=== PATIENT | female | born 1980 | race Caucasian/White ===

== ENCOUNTER → 2017-02-05 | Outpatient (CLI) | payer OTHER ==
[2017-02-05 14:48] LABS: BASO % 0.2 %; BASO ABS # 0.01 K/uL (0-0.2); COMPLETE YES; EOS % 2.8 %; HEMATOCRIT 31.8 % (37-47); IG% 0.4 %; LYMPH % 26.2 %; LYMPH ABS # 1.31 K/uL (1.2-3.4); MEAN CELL VOLUME 86.9 fL (80-100); MEAN CORPUSCULAR HGB CONC 31.1 g/dl (32-36); MONO % 7.4 %; PLATELET COUNT 324 K/uL (130-400); RED BLOOD COUNT 3.66 M/uL (4.2-5.4)
[2017-02-05 15:04] LABS: ALT/SGPT 20 U/L (12-78); AMYLASE 26 U/L (25-115); AST/SGOT 14 U/L (15-37); BLOOD UREA NITROGEN 8 mg/dl (7-18); CALCIUM 8.3 mg/dl (8.5-10.1); CARBON DIOXIDE 27 mmol/L (21-32); CHLORIDE 106 mmol/L (98-107); CREATININE 0.66 mg/dl (0.60-1.20); GLUCOSE 84 mg/dl (70-99); POTASSIUM 4.1 mmol/L (3.5-5.1); SODIUM 140 mmol/L (136-145)
[2017-02-05 15:07] LABS: ALB/GLOB RATIO 0.8 (0.9-2); ALKALINE PHOSPHATASE 77 U/L (45-117)
== END | disposition home or self-care (01) ==
LOC: C.LABSPEC 14:01
PROVIDERS: ATTEND Family Medicine
DX: K21.9 Gastro-esophageal reflux disease without esophagitis (principal)

== ENCOUNTER → 2017-06-17 | Outpatient (CLI) | payer OTHER ==
[2017-06-17 18:22] LABS: BASO % 0.2 %; BASO ABS # 0.01 K/uL (0-0.2); COMPLETE YES; EOS % 1.8 %; HEMATOCRIT 30.3 % (37-47); IG% 0.5 %; LYMPH % 22.5 %; LYMPH ABS # 1.34 K/uL (1.2-3.4); MEAN CELL VOLUME 85.8 fL (80-100); MEAN CORPUSCULAR HEMOGLOBIN 26.9 pg (25-34); MEAN CORPUSCULAR HGB CONC 31.4 g/dl (32-36); MEAN PLATELET VOLUME 9.1 fL (7.4-10.4); MONO % 7.9 %; NEUT % 67.1 %; PLATELET COUNT 297 K/uL (130-400); RED BLOOD COUNT 3.53 M/uL (4.2-5.4); WHITE BLOOD COUNT 5.96 K/uL (4.8-10.8)
[2017-06-17 18:30] LABS: ALT/SGPT 14 U/L (12-78); BLOOD UREA NITROGEN 6 mg/dl (7-18); BUN/CREATININE RATIO 8.4 (10-20); CALCIUM 8.6 mg/dl (8.5-10.1); CARBON DIOXIDE 24 mmol/L (21-32); CHLORIDE 104 mmol/L (98-107); CREATININE 0.74 mg/dl (0.60-1.20); GLUCOSE 91 mg/dl (70-99); POTASSIUM 3.9 mmol/L (3.5-5.1); SODIUM 137 mmol/L (136-145)
[2017-06-17 18:33] LABS: ALB/GLOB RATIO 0.7 (0.9-2); ALKALINE PHOSPHATASE 73 U/L (45-117); AST/SGOT 10 U/L (15-37)
--- NOTE | 2017-06-23 09:48 | CODING QUERY MEDICAL NECESSITY ---
SUPPORTING DIAGNOSIS NEEDED Dr. Allison, A supporting diagnosis is required for the test/procedure performed on this patient in order for us to be reimbursed by the patient's insurance. Please provide a supporting diagnosis for the following test/procedure listed below next to the test name along with your signature. *If there is no additional diagnosis for this patient that would support the following test/procedure please document that below next to the test/procedure. Test(s)/Procedure(s) that require a supporting diagnosis: * [id number] GLYCATED HEMOGLOBIN DIAGNOSIS: DATE OF SERVICE: 06/17/17 Provider Signature: Date: Thank you Jesse Dawson Health Information Management Once completed, please kindly fax back to [phone] For questions please call [phone]
== END ==
LOC: C.LABSPEC 17:55
PROVIDERS: ATTEND Family Medicine
DX: R35.0 Frequency of micturition (principal)

== ENCOUNTER → 2017-06-24 | Outpatient (CLI) | payer OTHER ==
[2017-06-24 18:50] LABS: TOTAL IRON BINDING CAPACITY 370 mcg/dl (250-450)
[2017-06-24 19:02] LABS: HEMATOCRIT 29.8 % (37-47); MEAN CELL VOLUME 86.1 fL (80-100); MEAN CORPUSCULAR HEMOGLOBIN 27.5 pg (25-34); MEAN CORPUSCULAR HGB CONC 31.9 g/dl (32-36); PLATELET COUNT 316 K/uL (130-400); RED BLOOD COUNT 3.46 M/uL (4.2-5.4); WHITE BLOOD COUNT 6.62 K/uL (4.8-10.8)
[2017-06-24 20:25] LABS: ANISOCYTOSIS PRESENT; EOSINOPHIL % 2.6 %; LYMPHOCYTE % 27.2 %; MDIFF REQUEST Y; META ABS # 0.06 K/uL (0-0); METAMYELOCYTE % 0.9 %; NEUTROPHILS % 68.4 %
== END | disposition home or self-care (01) ==
LOC: C.LABSPEC 18:08
PROVIDERS: ATTEND Family Medicine
DX: D64.9 Anemia, unspecified (principal)

== ENCOUNTER → 2017-12-16 | Outpatient (CLI) | payer OTHER ==
[2017-12-16 14:28] LABS: BASO % 0.2 %; BASO ABS # 0.01 K/uL (0-0.2); EOS % 2.1 %; HEMATOCRIT 30.3 % (37-47); HEMOGLOBIN 9.9 g/dL (12.0-16.0); IG# 0.02 K/uL (0.00-0.02); LYMPH % 27.8 %; MEAN CELL VOLUME 89.4 fL (80-100); MEAN CORPUSCULAR HEMOGLOBIN 29.2 pg (25-34); MEAN CORPUSCULAR HGB CONC 32.7 g/dl (32-36); MEAN PLATELET VOLUME 9.1 fL (7.4-10.4); MONO % 6.9 %; MONO ABS # 0.32 K/uL (0.11-0.59); NEUT % 62.6 %; NEUT ABS # 2.92 K/uL (1.4-6.5); PLATELET COUNT 274 K/uL (130-400); RED CELL DISTRIBUTION WIDTH CV 14.8 % (11.5-14.5); RED CELL DISTRIBUTION WIDTH SD 48.5 fL (36.4-46.3); WHITE BLOOD COUNT 4.67 K/uL (4.8-10.8)
[2017-12-16 14:48] LABS: ALBUMIN 3.4 gm/dl (3.4-5.0); ALT/SGPT 18 U/L (12-78); BLOOD UREA NITROGEN 8 mg/dl (7-18); CALCIUM 8.5 mg/dl (8.5-10.1); CARBON DIOXIDE 27 mmol/L (21-32); CREATININE 0.66 mg/dl (0.60-1.20); GLUCOSE 88 mg/dl (70-99); POTASSIUM 3.6 mmol/L (3.5-5.1); SODIUM 136 mmol/L (136-145)
[2017-12-16 14:58] LABS: ALKALINE PHOSPHATASE 69 U/L (45-117); AST/SGOT 13 U/L (15-37); TOTAL PROTEIN 7.8 gm/dl (6.4-8.2)
== END | disposition home or self-care (01) ==
LOC: C.LABSPEC 13:00
PROVIDERS: ATTEND Family Medicine
DX: R53.83 Other fatigue (principal)

== ENCOUNTER 2020-05-09 20:05 | Observation (INO) ==
[2020-05-09] MEDS ORDERED: SODIUM CHLORIDE 0.9% 1000ML 1,000 ML IV SCH (21:00)
[2020-05-09] MEDS ORDERED: SODIUM CHLORIDE 0.9% 250 ML IV PRN ×2 (21:01→21:55)
[2020-05-09] MEDS ORDERED: ONDANSETRON INJ 2 MG/ML 2 ML VIAL IV STA (21:02)
[2020-05-09] MEDS ORDERED: fentaNYL citrate 100 MCG/2 ML VIAL IV STA (21:02)
[2020-05-09 21:23] LABS: Hematocrit (blood only) 22.3 % (37-47); Hemoglobin 6.6 g/dL (12.0-16.0); Mean Corpuscular Hemoglobin 25.8 pg (25-34); Mean Corpuscular Hgb Conc 29.6 g/dL (32-36); Mean Corpuscular Volume 87.1 fL (80-100); Mean Platelet Volume 8.6 fL (7.4-10.4); Platelet Count 334 K/uL (130-400); RDW Coefficient of Variation 19.4 % (11.5-14.5); RDW Standard Deviation 62.1 fL (36.4-46.3); Red Blood Count 2.56 M/uL (4.2-5.4)
[2020-05-09 21:34] LABS: Partial Thromboplastin Ratio 0.9; Partial Thromboplastin Time 25.1 Seconds (21.0-31.0); Prothrombin Time 10.8 Seconds (9.0-12.0)
[2020-05-09 21:39] LABS: Albumin Level 3.4 gm/dl (3.4-5.0); BUN Creatinine Ratio 8.8 (10-20); Basophils # (auto) 0.01 K/uL (0-0.2); Basophils % (auto) 0.2 %; Calcium 8.3 mg/dl (8.5-10.1); Creatinine Clr Calc Pharmacy 111.5 ml/min; Eosinophils # (auto) 0.05 K/uL (0-0.5); Est GFR (African American) 107.6; Est GFR (Non-African American) 92.9; Hypochromasia Present; Immature Granulocytes # (auto) 0.01 K/uL (0.00-0.02); Immature Granulocytes % (auto) 0.2 %; Lymphocytes # (auto) 1.12 K/uL (1.2-3.4); Lymphocytes % (auto) 21.5 %; Monocytes # (auto) 0.41 K/uL (0.11-0.59); Monocytes % (auto) 7.9 %; Neutrophils % (auto) 69.2 %; Ovalocytes 1+; Potassium 3.4 mmol/L (3.5-5.1)
--- NOTE | 2020-05-09 21:39 | History & Physical Report ---
Date of Service May 09, 2020 Assessment & Plan (1) Vaginal bleeding: I have already discussed consent with patient in the office, as we have planned for this surgery for Friday. However, due to her increase in bleeding, will need to proceed to OR tonight. Due to severe anemia (hgb down to 6.6 tonight), will receive 2u PRBC. Consent form re-signed (office consent that was previously signed is not available). Questions answered, patient is agreeable to proceed to OR. Will plan for hysteroscopy, dilation and curettage, +/- polypectomy. History of Present Illness Chief Complaint: vaginal bleeding Primary Care Provider: Dante Allison 39 yo who presented to the ER tonight with significant increase in vaginal bleeding. She is scheduled for hysteroscopy, D&C, +/- Polypectomy on Friday for her heavy vaginal bleeding. Last food intake: 4:30pm. FROM PRIOR OFFICE NOTE: 39yo here as a new patient, for ER followup. She had presented to [facility] ER with severe heavy menses, and rec'd PRBC transfusion 2 units. Periods had been heavy, but not this severe in the past. Over the past 3-4 months the periods have gotten much worse. She is passing clots, soaking a pad every 30 miinutes. At this time, has slowed down. This period started 03/20/20 and is finally starting to slow down. Pap at least a year ago. No history of abnormal paps. 3 vaginal deliveries. Heavy bleeding with first delivery, did not receive transfusion. Currently sexually active. H/o tubal ligation, has not been on control for a long time. Reviewed ultrasound report today - endo thickness is 22mm. Recommend endometrial sampling. Due to the large thickness of endo, recommend D&C over endometrial biopsy. Pap smear negative. Allergies Allergy/AdvReac Type Severity Reaction Status Date / Time aspirin Allergy Mild Hives Verified 05/09/20 22:07 Home Medications Home Medications Medication Instructions Recorded Confirmed Type ferrous sulfate 325 mg PO QAM 04/11/20 05/09/20 History ibuprofen 400 - 600 mg PO Q6H PRN 04/11/20 05/09/20 History multivitamin 1 tab PO QAM 04/11/20 05/09/20 History pantoprazole 40 mg PO QAM 04/11/20 05/09/20 History norethindrone acetate 5 mg tablet 5 mg PO TID 10 Days #30 tab 05/08/20 05/09/20 Rx acetaminophen [Tylenol Extra 1,000 mg PO Q6H PRN 05/09/20 05/09/20 History Strength] Patient History Medical History Anemia Arthritis Chronic back pain GERD (gastroesophageal reflux disease) Well controlled and stable Surgical History H/O tubal ligation H/O wisdom tooth extraction History of colonoscopy X 2 History of esophagogastroduodenoscopy (EGD) Family History Mother Ovarian cancer Cancer Cervical, ovarian Father Diabetes Other Heart disease Hypertension Osteoporosis Social History Smoking Status: Never smoker Second Hand Exposure: Yes (MOTHER SMOKED); Hx Alcohol Use: Yes Alcohol type: beer Hx Substance Use: No Preferred Language: Palauan Communication Ability: Effective Flexographic Press Helper Required: No Beliefs That Will Affect Care: None Current Living Situation: Family and Significant Other Feels Safe at Home: Yes Review of Systems All systems reviewed & are unremarkable except as noted in HPI & below Physical Exam Physical Exam: Constitutional: alert, in no acute distress, well nourished, well developed and healthy appearing. Skin: normal skin color and pigmentation, normal skin turgor and no rash. Neck: the appearance of the neck was normal, no neck mass was observed, the thyroid was not enlarged and there were no palpable thyroid nodules. Pulmonary: no respiratory distress, normal respiratory rhythm and effort and clear bilateral breath sounds. Cardiovascular: heart rate and rhythm were normal, normal S1 and S2 and no murmurs present. Abdomen: soft, non-tender, no abdominal mass palpated and no hepato- splenomegaly. No hernias were discovered. : please see prior notes, will perform exam under anesthesia in OR Neurological: The patient was oriented to person, place, and time. Mood and affect were appropriate. Extremities: No edema, no calf tenderness. Results & Data ([facility]) Vital Signs (Past 12 Hours) Vital Signs Temp Pulse Resp Pulse Ox 05/09/20 20:08 37.1 C 99 H 18 100 Coding Level of Care Code None Diagnoses Vaginal bleeding N93.9
[2020-05-09 21:42] LABS: Albumin Globulin Ratio 0.7 (0.9-2); Bilirubin,Total 0.2 mg/dl (0.2-1); Globulin 4.6 gm/dl (2.5-4.0)
[2020-05-09 21:53] LABS: Appearance Urine Clear (Clear); Bilirubin Urine Negative (Negative); Blood Urine 3+ (Negative); Color Urine Yellow; Glucose Urine UA Negative (Negative); Ketones Urine Negative (Negative); Leukocyte Esterase Urine Negative (Negative); Nitrite Urine Negative (Negative); Protein Urine 1+ (Negative); Urobilinogen Urine Negative (Negative)
[2020-05-09 21:56] LABS: RBC Urine >30 /hpf (0-4)
[2020-05-09 21:58] LABS: Bacteria Urine 1+ (Negative)
[2020-05-10] MEDS ORDERED: fentaNYL citrate 100 MCG/2 ML VIAL IV PRN (00:04)
[2020-05-10] MEDS ORDERED: ATROPINE SULFATE 0.1 MG/ML 10ML SYR IV PRN (00:04)
[2020-05-10] MEDS ORDERED: ePHEDrine sulfate 50 MG/ML AMP IV PRN (00:04)
[2020-05-10] MEDS ORDERED: ONDANSETRON INJ 2 MG/ML 2 ML VIAL IV PRN ×2 (00:04→03:32)
--- NOTE | 2020-05-10 00:07 | Anesthesiology Consultation ---
Date of Service May 10, 2020 Assessment & Plan (1) Encounter for pre-operative examination: Chart Review Chart Review: Acceptable Risk for Surgery and Patient NOT seen in Pre Admission Testing Consults Requested none ASA [id number] Proposed Anesthesia Anesthesia Type: General Risk / Benefits Reviewed With: PT / POA / Parent / Guardian, Accepts Plan and Informed Consent Obtained History Surgery Operation Date: 05/09/20 23:00 Proposed Procedures p Dilatation And Curettage, Hysteroscopy - Alcira Cordero, Height/Weight Height: 5 ft 2 in Weight: 111.8 kg Allergies Allergy/AdvReac Type Severity Reaction Status Date / Time aspirin Allergy Mild Hives Verified 05/09/20 22:07 Medications Home Medications Medication Instructions Recorded Confirmed Last Taken ferrous sulfate 325 mg PO QAM 04/11/20 05/09/20 Unknown ibuprofen 400 - 600 mg PO Q6H PRN 04/11/20 05/09/20 Unknown multivitamin 1 tab PO QAM 04/11/20 05/09/20 Unknown pantoprazole 40 mg PO QAM 04/11/20 05/09/20 Unknown norethindrone acetate 5 mg tablet 5 mg PO TID 10 Days #30 tab 05/08/20 05/09/20 Unknown acetaminophen [Tylenol Extra 1,000 mg PO Q6H PRN 05/09/20 05/09/20 Unknown Strength] Active Medications Generic Name Dose Route Start Last Admin Trade Name Freq PRN Reason Stop Dose Admin Sodium Chloride 1,000 mls @ 125 mls/hr 05/09/20 21:00 05/09/20 21:31 Nss 1000ml IV 05/10/20 04:59 125 mls/hr .Q8H MILLI Administration NPO Date Last Intake of Fluids: 05/09/20 Time Last Intake of Fluids: 16:30 Date Last Intake of Solids: 05/09/20 Time Last Intake of Solids: 16:30 Past Medical History Medical History Anemia Arthritis Chronic back pain GERD (gastroesophageal reflux disease) Well controlled and stable Exercise / Class Metabolic Activity II 4-5 Yardwork/Stairs/Walk up hill (mild acute SOB in last 24 hours) Past Family History Family History Mother Ovarian cancer Cancer Cervical, ovarian Father Diabetes Other Heart disease Hypertension Osteoporosis Past Surgical History Surgical History H/O tubal ligation H/O wisdom tooth extraction History of colonoscopy X 2 History of esophagogastroduodenoscopy (EGD) Past Anesthesia History No Hx of Anesthesia Complications and No Family Hx of Anesthesia Complications History of PONV No Hx of PONV and No Hx of Motion Sickness Social History Smoking Status: Never smoker Hx Alcohol Use: Yes Alcohol type: beer alcohol intake frequency: holidays/special occasions only Hx Substance Use: No Physical Exam Vital Signs Last Vital Signs Temp 37.1 C 05/09/20 20:08 Pulse 75 05/09/20 23:32 Resp 18 05/09/20 23:32 BP 145/82 H 05/09/20 23:32 Pulse Ox 100 05/09/20 23:32 Constitutional + obese ENMT Mouth: no dentition abnormality Thyromental Distance: > or= 3.5 Finger Breadths Mallampati Class: II Neck normal visual inspection Respiratory normal respiratory effort Auscultation: lungs clear to auscultation bilaterally Cardiovascular Rate/Rhythm: regular rate and regular rhythm Psychiatric Orientation: alert Testing Laboratory Results 05/09/20 21:09 05/09/20 21:09 PT 10.8 Seconds (9.0-12.0) 05/09/20 21:09 INR 1.0 (0.9-1.1) 05/09/20 21:09 APTT 25.1 Seconds (21.0-31.0) 05/09/20 21:09 Urine Color Yellow 05/09/20 21:37 Urine Appearance Clear (Clear) 05/09/20 21:37 Urine pH 6.0 (4.5-7.5) 05/09/20 21:37 Ur Specific [place] 1.020 (1.000-1.030) 05/09/20 21:37 Urine Protein 1+ (Negative) H 05/09/20 21:37 Urine Glucose (UA) Negative (Negative) 05/09/20 21:37 Urine Ketones Negative (Negative) 05/09/20 21:37 Urine Nitrite Negative (Negative) 05/09/20 21:37 Ur Leukocyte Esterase Negative (Negative) 05/09/20 21:37 Urine RBC >30 /hpf (0-4) H 05/09/20 21:37 Urine WBC 10-30 /hpf (0-5) H 05/09/20 21:37 Ur Epithelial Cells 5-10 /lpf (0-5) H 05/09/20 21:37 Blood Type O Positive 05/09/20 21:15 Antibody Screen NEGATIVE 05/09/20 21:15 05/09/20 21:40 POC Ur Test NEG
[2020-05-10] MEDS ORDERED: fentaNYL citrate 100 MCG/2 ML VIAL ONE (00:29)
--- NOTE | 2020-05-10 01:01 | Emergency Department Note ---
History of Present Illness General Chief complaint: Vaginal Bleeding Stated complaint: BLEEDING AND PAIN Time Seen by Provider: 05/09/20 20:46 Source: patient and RN notes reviewed Mode of arrival: ambulatory Limitations: no limitations History of Present Illness Provider complaint: Vaginal bleeding Maximum Pain Intensity: 8 This patient is a 39-year-old female who presents emergency department with complaints of heavy vaginal bleeding. The patient states she is scheduled to have surgery with Dr. Cordero secondary to a polyp and a thickened endometrium. Patient is currently taking Aygestin but states she is changing her pad twice every hour. Last month the patient was [facility] at [facility] and transfused 2 units of PRBCs. Patient states she has having some lower abdominal cramping and does feel somewhat lightheaded at times. She denies any chest pain or shortness of breath. She did speak with Dr. Cordero prior to coming to the emergency department. Home Medications Home Medications Medication Instructions Recorded Confirmed Type ferrous sulfate 325 mg PO QAM 04/11/20 05/09/20 History ibuprofen 400 - 600 mg PO Q6H PRN 04/11/20 05/09/20 History multivitamin 1 tab PO QAM 04/11/20 05/09/20 History pantoprazole 40 mg PO QAM 04/11/20 05/09/20 History norethindrone acetate 5 mg tablet 5 mg PO TID 10 Days #30 tab 05/08/20 05/09/20 Rx acetaminophen [Tylenol Extra 1,000 mg PO Q6H PRN 05/09/20 05/09/20 History Strength] Allergies Allergy/AdvReac Type Severity Reaction Status Date / Time aspirin Allergy Mild Hives Verified 05/09/20 22:07 Past Med/Surg History Medical History Anemia Arthritis Chronic back pain GERD (gastroesophageal reflux disease) Well controlled and stable Surgical History H/O tubal ligation H/O wisdom tooth extraction History of colonoscopy X 2 History of esophagogastroduodenoscopy (EGD) Family History Mother Ovarian cancer Cancer Cervical, ovarian Father Diabetes Other Heart disease Hypertension Osteoporosis Social History Smoking Status: Never smoker Second Hand Exposure: Yes (MOTHER SMOKED); Hx Alcohol Use: Yes Alcohol type: beer Hx Substance Use: No Preferred Language: Swedish Communication Ability: Effective Network Programmer Required: No Beliefs That Will Affect Care: None Current Living Situation: Family and Significant Other Feels Safe at Home: Yes Review of Systems See HPI for pertinent positives & negatives. and A total of 10 systems reviewed and were otherwise negative Physical Exam Vital Signs Vital Signs - 24 hr 05/09/20 20:08 05/09/20 21:35 05/09/20 21:36 Temperature 37.1 C Temperature Source Oral Pulse Rate 99 H 86 Pulse Rate [Apical] 84 Pulse Rate from SpO2 Sensor 87 Respiratory Rate 18 18 15 Respiratory Depth Normal Blood Pressure 132/84 Blood Pressure [Left Arm] 132/84 Blood Pressure Mean 94 Blood Pressure Mean [Left Arm] 100 Pulse Oximetry 100 98 99 Oxygen Delivery Method Room Air Room Air Sepsis Recent Fever Within 48 Hours No Sepsis New/Unexplained Change in Mental Status N/A Sepsis Action Taken by Nursing No Action Required 05/09/20 21:39 05/09/20 21:40 05/09/20 21:50 Temperature Temperature Source Pulse Rate 84 88 99 H Pulse Rate [Apical] Pulse Rate from SpO2 Sensor 84 87 96 H Respiratory Rate 14 12 12 Respiratory Depth Blood Pressure Blood Pressure [Left Arm] Blood Pressure Mean Blood Pressure Mean [Left Arm] Pulse Oximetry 99 98 98 Oxygen Delivery Method Sepsis Recent Fever Within 48 Hours Sepsis New/Unexplained Change in Mental Status Sepsis Action Taken by Nursing 05/09/20 22:00 05/09/20 22:10 05/09/20 22:20 Temperature Temperature Source Pulse Rate 86 83 84 Pulse Rate [Apical] Pulse Rate from SpO2 Sensor 86 82 Respiratory Rate 15 17 13 Respiratory Depth Blood Pressure Blood Pressure [Left Arm] Blood Pressure Mean Blood Pressure Mean [Left Arm] Pulse Oximetry 97 99 Oxygen Delivery Method Sepsis Recent Fever Within 48 Hours Sepsis New/Unexplained Change in Mental Status Sepsis Action Taken by Nursing 05/09/20 22:30 05/09/20 22:40 05/09/20 22:50 Temperature Temperature Source Pulse Rate 80 81 81 Pulse Rate [Apical] Pulse Rate from SpO2 Sensor Respiratory Rate 15 15 12 Respiratory Depth Blood Pressure Blood Pressure [Left Arm] Blood Pressure Mean Blood Pressure Mean [Left Arm] Pulse Oximetry Oxygen Delivery Method Sepsis Recent Fever Within 48 Hours Sepsis New/Unexplained Change in Mental Status Sepsis Action Taken by Nursing 05/09/20 22:51 05/09/20 23:00 05/09/20 23:10 Temperature Temperature Source Pulse Rate 84 83 89 Pulse Rate [Apical] Pulse Rate from SpO2 Sensor Respiratory Rate 18 17 Respiratory Depth Blood Pressure 130/80 Blood Pressure [Left Arm] Blood Pressure Mean 84 Blood Pressure Mean [Left Arm] Pulse Oximetry 98 Oxygen Delivery Method Sepsis Recent Fever Within 48 Hours Sepsis New/Unexplained Change in Mental Status Sepsis Action Taken by Nursing 05/09/20 23:19 05/09/20 23:20 05/09/20 23:32 Temperature Temperature Source Pulse Rate 85 85 75 Pulse Rate [Apical] Pulse Rate from SpO2 Sensor Respiratory Rate 19 18 Respiratory Depth Blood Pressure 137/79 145/82 H Blood Pressure [Left Arm] Blood Pressure Mean 95 Blood Pressure Mean [Left Arm] Pulse Oximetry 98 100 Oxygen Delivery Method Room Air Sepsis Recent Fever Within 48 Hours Sepsis New/Unexplained Change in Mental Status Sepsis Action Taken by Nursing Vital signs reviewed. General: Well-appearing 39 yo female, in no significant distress. HEENT: No scleral icterus, PERRLA, neck supple. Pale conjunctiva. Cardiovascular: Regular rate and rhythm, no extra sounds. Pulmonary: Clear to auscultation bilaterally, normal work of breathing. Abdomen: Soft, nontender, nondistended, positive bowel sounds. Musculoskeletal: Atraumatic, no peripheral edema. Neurologic: Patient awake alert and oriented x 3 : Normal external female genitals. Moderate amount of blood on external examination. Skin: Warm, dry, no rash Course Administered Medications Sodium Chloride (Nss 1000ml) 1,000 mls @ 125 mls/hr IV .Q8H MILLI Stop: 05/10/20 04:59 Last Admin: 05/09/20 21:31 Dose: 125 mls/hr Documented by: [id number] Discontinued Medications Fentanyl Citrate (Fentanyl Citrate 100 Mcg/2 Ml Vial) 50 mcg IV NOW STA Stop: 05/09/20 21:03 Last Admin: 05/09/20 21:32 Dose: 50 mcg Documented by: [id number] Ondansetron HCl (Ondansetron Inj 2 Mg/Ml 2 Ml Vial) 4 mg IV NOW STA Stop: 05/09/20 21:03 Last Admin: 05/09/20 21:31 Dose: 4 mg Documented by: [id number] Critical Care Time Critical Care Time: Yes I have personally spent greater than 35 minutes of critical care time in the direct management of this patient. This includes bedside care, interpretation of diagnostic studies, and testing, discussion with consultants, patient, and f amily members, and other required patient management activities. This 35 minutes is in excess of all separately billable procedures. Medical Decision Making Differential Diagnosis Differential diagnosis: Etiologies such as ectopic , dysfunction uterine bleeding, pelvic mass, fibroid, coagulopathy, anemia, trauma, infection, as well as others were entertained. Medical Records Attestation: I reviewed the patient's medical records. Home Medications Current Medication List: was personally reviewed by me Laboratory Data Attestation: I reviewed the patient's lab results. Result diagrams: 05/09/20 21:09 05/09/20 21:09 Lab Results 05/09/20 05/09/20 05/09/20 Range/Units 21:09 21:09 21:09 WBC 5.20 (4.8-10.8) K/uL RBC 2.56 L (4.2-5.4) M/uL Hgb 6.6 L* (12.0-16.0) g/dL Hct 22.3 L (37-47) % MCV 87.1 (80-100) fL MCH 25.8 (25-34) pg MCHC 29.6 L (32-36) g/dL RDW Std Deviation 62.1 H (36.4-46.3) fL RDW Coeff of [place] 19.4 H (11.5-14.5) % Plt Count 334 (130-400) K/uL MPV 8.6 (7.4-10.4) fL Immature Gran % (Auto) 0.2 % Neut % (Auto) 69.2 % Lymph % (Auto) 21.5 % [place] % (Auto) 7.9 % Eos % (Auto) 1.0 % Baso % (Auto) 0.2 % Neut # (Auto) 3.60 (1.4-6.5) K/uL Lymph # (Auto) 1.12 L (1.2-3.4) K/uL [place] # (Auto) 0.41 (0.11-0.59) K/uL Eos # (Auto) 0.05 (0-0.5) K/uL Baso # (Auto) 0.01 (0-0.2) K/uL Immature Gran # (Auto) 0.01 (0.00-0.02) K/uL Hypochromasia Present Ovalocytes 1+ PT 10.8 (9.0-12.0) Seconds INR 1.0 (0.9-1.1) APTT 25.1 (21.0-31.0) Seconds PTT Ratio 0.9 Sodium 138 (136-145) mmol/L Potassium 3.4 L (3.5-5.1) mmol/L Chloride 108 H (98-107) mmol/L Carbon Dioxide 24 (21-32) mmol/L Anion Gap 6.0 (3-11) BUN 7 (7-18) mg/dl Creatinine 0.80 (0.6-1.2) mg/dl Est Cr Clr Drug Dosing 111.5 ml/min Est GFR ( Amer) 107.6 Est GFR (Non-Af Amer) 92.9 BUN/Creatinine Ratio 8.8 L (10-20) Glucose 107 H (70-99) mg/dl Calcium 8.3 L (8.5-10.1) mg/dl Total Bilirubin 0.2 (0.2-1) mg/dl AST 13 L (15-37) U/L ALT 23 (12-78) U/L Alkaline Phosphatase 60 (45-117) U/L Total Protein 8.0 (6.4-8.2) gm/dl Albumin 3.4 (3.4-5.0) gm/dl Globulin 4.6 H (2.5-4.0) gm/dl Albumin/Globulin Ratio 0.7 L (0.9-2) Urine Color Urine Appearance (Clear) Urine pH (4.5-7.5) Ur Specific [place] (1.000-1.030) Urine Protein (Negative) Urine Glucose (UA) (Negative) Urine Ketones (Negative) Urine Blood (Negative) Urine Nitrite (Negative) Urine Bilirubin (Negative) Urine Urobilinogen (Negative) Ur Leukocyte Esterase (Negative) Urine RBC (0-4) /hpf Urine WBC (0-5) /hpf Ur Epithelial Cells (0-5) /lpf Urine Bacteria (Negative) POC Ur Test (NEG) Blood Type Blood Type Recheck Antibody Screen Crossmatch 05/09/20 05/09/20 05/09/20 Range/Units 21:15 21:37 21:40 WBC (4.8-10.8) K/uL RBC (4.2-5.4) M/uL Hgb (12.0-16.0) g/dL Hct (37-47) % MCV (80-100) fL MCH (25-34) pg MCHC (32-36) g/dL RDW Std Deviation (36.4-46.3) fL RDW Coeff of [place] (11.5-14.5) % Plt Count (130-400) K/uL MPV (7.4-10.4) fL Immature Gran % (Auto) % Neut % (Auto) % Lymph % (Auto) % [place] % (Auto) % Eos % (Auto) % Baso % (Auto) % Neut # (Auto) (1.4-6.5) K/uL Lymph # (Auto) (1.2-3.4) K/uL [place] # (Auto) (0.11-0.59) K/uL Eos # (Auto) (0-0.5) K/uL Baso # (Auto) (0-0.2) K/uL Immature Gran # (Auto) (0.00-0.02) K/uL Hypochromasia Ovalocytes PT (9.0-12.0) Seconds INR (0.9-1.1) APTT (21.0-31.0) Seconds PTT Ratio Sodium (136-145) mmol/L Potassium (3.5-5.1) mmol/L Chloride (98-107) mmol/L Carbon Dioxide (21-32) mmol/L Anion Gap (3-11) BUN (7-18) mg/dl Creatinine (0.6-1.2) mg/dl Est Cr Clr Drug Dosing ml/min Est GFR ( Amer) Est GFR (Non-Af Amer) BUN/Creatinine Ratio (10-20) Glucose (70-99) mg/dl Calcium (8.5-10.1) mg/dl Total Bilirubin (0.2-1) mg/dl AST (15-37) U/L ALT (12-78) U/L Alkaline Phosphatase (45-117) U/L Total Protein (6.4-8.2) gm/dl Albumin (3.4-5.0) gm/dl Globulin (2.5-4.0) gm/dl Albumin/Globulin Ratio (0.9-2) Urine Color Yellow Urine Appearance Clear (Clear) Urine pH 6.0 (4.5-7.5) Ur Specific [place] 1.020 (1.000-1.030) Urine Protein 1+ H (Negative) Urine Glucose (UA) Negative (Negative) Urine Ketones Negative (Negative) Urine Blood 3+ H (Negative) Urine Nitrite Negative (Negative) Urine Bilirubin Negative (Negative) Urine Urobilinogen Negative (Negative) Ur Leukocyte Esterase Negative (Negative) Urine RBC >30 H (0-4) /hpf Urine WBC 10-30 H (0-5) /hpf Ur Epithelial Cells 5-10 H (0-5) /lpf Urine Bacteria 1+ H (Negative) POC Ur Test NEG (NEG) Blood Type O Positive Blood Type Recheck Antibody Screen NEGATIVE Crossmatch See Detail 05/09/20 Range/Units 22:42 WBC (4.8-10.8) K/uL RBC (4.2-5.4) M/uL Hgb (12.0-16.0) g/dL Hct (37-47) % MCV (80-100) fL MCH (25-34) pg MCHC (32-36) g/dL RDW Std Deviation (36.4-46.3) fL RDW Coeff of [place] (11.5-14.5) % Plt Count (130-400) K/uL MPV (7.4-10.4) fL Immature Gran % (Auto) % Neut % (Auto) % Lymph % (Auto) % [place] % (Auto) % Eos % (Auto) % Baso % (Auto) % Neut # (Auto) (1.4-6.5) K/uL Lymph # (Auto) (1.2-3.4) K/uL [place] # (Auto) (0.11-0.59) K/uL Eos # (Auto) (0-0.5) K/uL Baso # (Auto) (0-0.2) K/uL Immature Gran # (Auto) (0.00-0.02) K/uL Hypochromasia Ovalocytes PT (9.0-12.0) Seconds INR (0.9-1.1) APTT (21.0-31.0) Seconds PTT Ratio Sodium (136-145) mmol/L Potassium (3.5-5.1) mmol/L Chloride (98-107) mmol/L Carbon Dioxide (21-32) mmol/L Anion Gap (3-11) BUN (7-18) mg/dl Creatinine (0.6-1.2) mg/dl Est Cr Clr Drug Dosing ml/min Est GFR ( Amer) Est GFR (Non-Af Amer) BUN/Creatinine Ratio (10-20) Glucose (70-99) mg/dl Calcium (8.5-10.1) mg/dl Total Bilirubin (0.2-1) mg/dl AST (15-37) U/L ALT (12-78) U/L Alkaline Phosphatase (45-117) U/L Total Protein (6.4-8.2) gm/dl Albumin (3.4-5.0) gm/dl Globulin (2.5-4.0) gm/dl Albumin/Globulin Ratio (0.9-2) Urine Color Urine Appearance (Clear) Urine pH (4.5-7.5) Ur Specific [place] (1.000-1.030) Urine Protein (Negative) Urine Glucose (UA) (Negative) Urine Ketones (Negative) Urine Blood (Negative) Urine Nitrite (Negative) Urine Bilirubin (Negative) Urine Urobilinogen (Negative) Ur Leukocyte Esterase (Negative) Urine RBC (0-4) /hpf Urine WBC (0-5) /hpf Ur Epithelial Cells (0-5) /lpf Urine Bacteria (Negative) POC Ur Test (NEG) Blood Type Blood Type Recheck O Positive Antibody Screen Crossmatch Blood Pressure Blood Pressure Findings: Elevated blood pressure Blood Pressure Disposition: elevated BP felt to be situational MDM Narrative This patient was evaluated and appeared to be in no significant distress. An order for cardiac monitoring was placed and the patient was noted to be in a normal sinus rhythm at 86 bpm. Patient's medical records were reviewed. IV access was obtained and laboratory work was drawn. Patient was found to have a hemoglobin of 6.6. test is negative. 2 units of PRBCs were ordered. I did discuss the case with Dr. Cordero of [facility]. She feels the patient will require surgical intervention tonight. She requested that the blood be transfused, the patient was consented. Patient expressed understanding of the plan and agreed. She remained stable in the emergency department until transfer to the operating room. Impression & Plan Dysfunctional uterine bleeding, Anemia Discharge Plan Visit Data Chief Complaint: Vaginal Bleeding Stated Complaint: BLEEDING AND PAIN ED Provider: Lynnette Campbell Discharge Problem: Dysfunctional uterine bleeding, Anemia Patient Disposition: Still a Patient Discharge Instructions Interventions: ED Discharge Assessment Last Done: 05/09/20 23:32 Discharge Problem: Anemia Qualifiers: Anemia type: iron deficiency Iron deficiency anemia type: chronic blood loss Qualified Code(s): D50.0 - Iron deficiency anemia secondary to blood loss (chronic)
[2020-05-10] MEDS ORDERED: METHYLERGONOVINE MALEATE 0.2 MG/ML AMP ONE (01:09)
[2020-05-10] MEDS ORDERED: DEXAMETHASONE SOD INJ 4 MG/ML VIAL ONE (01:17)
[2020-05-10] MEDS ORDERED: ONDANSETRON INJ 2 MG/ML 2 ML VIAL ONE (01:17)
[2020-05-10] MEDS ORDERED: PROPOFOL IV EMULSION 10 MG/ML 20 ML VIAL IV ONE (01:17)
[2020-05-10] MEDS ORDERED: LIDOCAINE HCL 2% 2 ML VIAL/AMP(20MG/ML) INFIL ONE (01:17)
[2020-05-10] MEDS ORDERED: SUCCINYLCHOLINE CHLORIDE 20 MG/ML 10 ML VIAL IV ONE (01:17)
--- NOTE | 2020-05-10 01:18 | Operative Report ---
PG Post Operative Report Pre & Post Diagnosis Operation Date: 05/09/20 23:00 Pre-Op Diagnosis: Vaginal bleeding Post-Op Diagnosis: Vaginal bleeding I identified the patient and participated in the time-out.: Yes Procedure Operation Date: 05/09/20 23:00 Actual Procedures p Dilatation And Curettage, Hysteroscopy, Polypectomy - Alcira Cordero DO Surgeon Alcira Cordero, Security Messenger none Estimated Blood Loss 25 Findings See Below Thickened endometrium, polyp-like protrusions into cavity Specimens endometrial curettings Drains bladder drained prior to case Anesthesia Type General Complications none Disposition Accompanied Patient To Recovery: No Disposition: Recovery Room Indications 39yo who presented to ER with severe vaginal bleeding, hemoglobin dropped to 6.6. Description of Procedure The patient was taken to the operating room, general anesthesia was admin istered. She received 2 units of packed red blood cells preoperatively. She is prepared and draped in the usual sterile fashion in the dorsolithotomy position with feet in yellowfin stirrups. Timeout was confirmed. The bladder was drained. A weighted speculum was placed in the vagina, the cervix was visualized. Its anterior lip was grasped with a single-tooth tenaculum. The uterus was sounded to approximately 10 cm. The cervix was gently dilated to admit the hysteroscope. The hysteroscope was inserted into the cavity, the cavity was visualized and bilateral tubal ostia were visualized. There was an abundance of thickened endometrial tissue throughout the cavity, including some polyp-like protrusions. The MyoSure device was used to obtain a global curettage of the entire cavity. While there is a documented fluid deficit of 400 cc, the majority of the fluid either saturated the pad underneath the patient or puddled on the floor. The specimen was labeled endometrial curettings, and sent to pathology for further evaluation. All instruments were then removed from the vagina, excellent hemostasis was observed. Due to her large amount of bleeding preoperatively, and my concern that curettage may have exposed vessels in the cavity, I elected to give a prophylactic dose of Methergine, this was given by anesthesia prior to leaving the operating room. Again, excellent hemostasis was noted at the vagina. The patient tolerated the procedure well, and will be taken to the recovery area in stable and good condition. I attest to the content of the Intraoperative Record and any orders documented therein. Any exceptions are noted below.
--- NOTE | 2020-05-10 01:37 | Anesthesiology Progress Note ---
Date of Service May 10, 2020 Anesthesia Post Procedure Vital Signs Vital Signs: Temp Pulse Pulse Resp BP BP Pulse Ox 05/09/20 23:32 75 18 145/82 H 100 05/09/20 23:20 85 05/09/20 23:19 85 19 137/79 98 05/09/20 23:10 89 17 05/09/20 23:00 83 05/09/20 22:51 84 18 130/80 98 05/09/20 22:50 81 12 05/09/20 22:40 81 15 05/09/20 22:30 80 15 05/09/20 22:20 84 13 05/09/20 22:10 83 17 99 05/09/20 22:00 86 15 97 05/09/20 21:50 99 H 12 98 05/09/20 21:40 88 12 98 05/09/20 21:39 84 14 99 05/09/20 21:36 86 15 132/84 99 05/09/20 21:35 84 18 132/84 98 05/09/20 20:08 37.1 C 99 H 18 100 Pain Intensity Abdomen: Pain Intensity: 10 Transfer of Care Handoff Completed per policy Notes Mental Status: alert / awake / arousable Patient Amnestic to Procedure: Yes Nausea / Vomiting: adequately controlled Pain: adequately controlled Airway Patency, RR, SpO2: stable & adequate BP & HR: stable & adequate Hydration State: stable & adequate Anesthetic Complications: no major complications apparent
[2020-05-10] MEDS ORDERED: OXYCODONE/ACETAMINOPHEN 5mg/325mg TAB PO PRN ×2 (03:32)
[2020-05-10] MEDS ORDERED: ACETAMINOPHEN 325 MG TAB PO PRN (03:32)
[2020-05-10] MEDS ORDERED: IBUPROFEN 600 MG TAB PO PRN (03:32)
[2020-05-10] MEDS ORDERED: LACTATED RINGER'S 1,000 ML IV SCH (03:32)
[2020-05-10 06:30] LABS: Hematocrit (blood only) 29.7 % (37-47); Hemoglobin 9.3 g/dL (12.0-16.0)
--- NOTE | 2020-05-10 08:15 | Anesthesiology Progress Note ---
Date of Service May 10, 2020 Anesthesia Post Procedure Vital Signs Vital Signs: Temp Pulse Pulse Pulse Resp BP BP 05/10/20 06:15 88 20 118/72 05/10/20 05:15 89 20 120/78 05/10/20 04:15 36.9 C 99 H 20 123/79 05/10/20 03:45 95 H 20 132/81 05/10/20 03:15 37.0 C 97 H 20 117/75 05/10/20 02:46 37.3 C 98 H 23 132/80 05/10/20 02:31 98 H 20 118/73 05/10/20 02:16 96 H 21 138/77 05/10/20 02:00 95 H 22 115/87 05/10/20 01:45 93 H 22 134/73 05/10/20 01:40 95 H 23 131/94 05/10/20 01:35 97 H 22 118/73 05/10/20 01:30 37.1 C 102 H 23 136/85 05/09/20 23:32 75 18 145/82 H 05/09/20 23:20 85 05/09/20 23:19 85 19 137/79 05/09/20 23:10 89 17 05/09/20 23:00 83 05/09/20 22:51 84 18 130/80 05/09/20 22:50 81 12 05/09/20 22:40 81 15 05/09/20 22:30 80 15 05/09/20 22:20 84 13 05/09/20 22:10 83 17 05/09/20 22:00 86 15 05/09/20 21:50 99 H 12 05/09/20 21:40 88 12 05/09/20 21:39 84 14 05/09/20 21:36 86 15 132/84 05/09/20 21:35 84 18 132/84 05/09/20 20:08 37.1 C 99 H 18 Pulse Ox 05/10/20 06:15 97 05/10/20 05:15 92 05/10/20 04:15 92 05/10/20 03:45 95 05/10/20 03:15 94 05/10/20 02:46 93 05/10/20 02:31 92 05/10/20 02:16 92 05/10/20 02:00 92 05/10/20 01:45 92 05/10/20 01:40 93 05/10/20 01:35 100 05/10/20 01:30 97 05/09/20 23:32 100 05/09/20 23:20 05/09/20 23:19 98 05/09/20 23:10 05/09/20 23:00 05/09/20 22:51 98 05/09/20 22:50 05/09/20 22:40 05/09/20 22:30 05/09/20 22:20 05/09/20 22:10 99 05/09/20 22:00 97 05/09/20 21:50 98 05/09/20 21:40 98 05/09/20 21:39 99 05/09/20 21:36 99 05/09/20 21:35 98 05/09/20 20:08 100 Pain Intensity Abdomen: Pain Intensity: 4 Notes Mental Status: alert / awake / arousable Patient Amnestic to Procedure: Yes Nausea / Vomiting: adequately controlled Pain: adequately controlled Airway Patency, RR, SpO2: stable & adequate BP & HR: stable & adequate Hydration State: stable & adequate Anesthetic Complications: no major complications apparent and Pt Satisfied with anesthetic care
--- NOTE | 2020-05-10 08:32 | Gynecologic Progress Note ---
Date of Service May 10, 2020 Assessment & Plan Admission and Anticipated Discharge Date Admission Date: May 10, 2020 Subjective Doing well this AM. Hgb improved to 9.3. She is feeling much better. Pain c ontrolled, able to ambulate. Scant vaginal bleeding. Vitals stable. Discussed that we will discharge home, start OCP while waiting for her pathology to return. She is agreeable. Results & Data ([facility]) Vital Signs (Past 12 Hours) Vital Signs Temp Pulse Pulse Pulse Resp BP BP 05/10/20 06:15 88 20 118/72 05/10/20 05:15 89 20 120/78 05/10/20 04:15 36.9 C 99 H 20 123/79 05/10/20 03:45 95 H 20 132/81 05/10/20 03:15 37.0 C 97 H 20 117/75 05/10/20 02:46 37.3 C 98 H 23 132/80 05/10/20 02:31 98 H 20 118/73 05/10/20 02:16 96 H 21 138/77 05/10/20 02:00 95 H 22 115/87 05/10/20 01:45 93 H 22 134/73 05/10/20 01:40 95 H 23 131/94 05/10/20 01:35 97 H 22 118/73 05/10/20 01:30 37.1 C 102 H 23 136/85 05/09/20 23:32 75 18 145/82 H 05/09/20 23:20 85 05/09/20 23:19 85 19 137/79 05/09/20 23:10 89 17 05/09/20 23:00 83 05/09/20 22:51 84 18 130/80 05/09/20 22:50 81 12 05/09/20 22:40 81 15 05/09/20 22:30 80 15 05/09/20 22:20 84 13 05/09/20 22:10 83 17 05/09/20 22:00 86 15 05/09/20 21:50 99 H 12 05/09/20 21:40 88 12 05/09/20 21:39 84 14 05/09/20 21:36 86 15 132/84 05/09/20 21:35 84 18 132/84 Pulse Ox 05/10/20 06:15 97 05/10/20 05:15 92 08/26/20 04:15 92 05/10/20 03:45 95 05/10/20 03:15 94 05/10/20 02:46 93 05/10/20 02:31 92 05/10/20 02:16 92 05/10/20 02:00 92 05/10/20 01:45 92 05/10/20 01:40 93 05/10/20 01:35 100 05/10/20 01:30 97 05/09/20 23:32 100 05/09/20 23:20 05/09/20 23:19 98 05/09/20 23:10 05/09/20 23:00 05/09/20 22:51 98 05/09/20 22:50 05/09/20 22:40 05/09/20 22:30 05/09/20 22:20 05/09/20 22:10 99 05/09/20 22:00 97 05/09/20 21:50 98 05/09/20 21:40 98 05/09/20 21:39 99 05/09/20 21:36 99 05/09/20 21:35 98
--- NOTE | 2020-05-15 10:48 | Discharge Summary ---
Date of Service May 15, 2020 Admission HPI Per Admitting Provider 39 yo who presented to the ER tonight with significant increase in vaginal bleeding. She is scheduled for hysteroscopy, D&C, +/- Polypectomy on Friday for her heavy vaginal bleeding. Last food intake: 4:30pm. FROM PRIOR OFFICE NOTE: 39yo here as a new patient, for ER followup. She had presented to [place] with severe heavy menses, and rec'd PRBC transfusion 2 units. Periods had been heavy, but not this severe in the past. Over the past 3-4 months the periods have gotten much worse. She is passing clots, soaking a pad every 30 miinutes. At this time, has slowed down. This period started 03/20/20 and is finally starting to slow down. Pap at least a year ago. No history of abnormal paps. 3 vaginal deliveries. Heavy bleeding with first delivery, did not receive transfusion. Currently sexually active. H/o tubal ligation, has not been on control for a long time. Reviewed ultrasound report today - endo thickness is 22mm. Recommend endometrial sampling. Due to the large thickness of endo, recommend D&C over endometrial biopsy. Pap smear negative. Discharge Data Consultations 05/09/20 21:39 ED Decision to Admit Stat Procedures Performed Operation Date: 05/09/20 23:00 Actual Procedures p Dilatation And Curettage, - Alcira Cordero DO s Hysteroscopy, Polypectomy - Alcira Cordero DO Hospital Course (1) Dysfunctional uterine bleeding: Taken from ER to OR for D&C, hysteroscopy. 2u PRBC transfused. After recovery, discharged home with Rx sprintec to start. (2) Anemia: (3) Vaginal bleeding: (4) Heavy menses: (5) Anemia: Coding Level of Care Code None Diagnoses Dysfunctional uterine bleeding N93.8 Anemia D50.0 Anemia type: iron deficiency Iron deficiency anemia type: chronic blood loss Vaginal bleeding N93.9 Heavy menses N92.0 Anemia D64.9
== END 2020-05-10 10:00 | disposition home or self-care (01) ==
LOC: ED 20:05 → OR 23:32 → 4S2 23:32